=== PATIENT | male | born 1990 | race American Indian/Alaskan Native ===

== ENCOUNTER 2017-02-11 07:55 | Emergency (ER) | payer SELFPAY ==
[2017-02-11 08:39] VITALS: BP 123/78
[2017-02-11] MEDS ORDERED: MOTRIN PO ONE (10:14)
[2017-02-11] MEDS ORDERED: ZOFRAN ODT PO ONE (10:15)
--- NOTE | 2017-02-11 10:24 | Emergency Department Report ---
Entered by PRISCILLA LANGSTON, acting as scribe for LO BEAUCHAMP PA. ED ENT HPI - General Chief complaint: Pain General Stated complaint: TOOTHACHE Time Seen by Provider: 02/11/17 09:58 Source: patient Mode of arrival: Ambulatory Limitations: No Limitations - History of Present Illness Initial comments: 26 y/o male presents to the ED c/o top and bottom right side tooth pain. Associated symptoms include gum swelling to right cheek but he denies fever and chills. No alleviating factors despite taking goody's power and no aggravating factors. Allergic to tylenol. complaint: tooth pain Onset/Timin -: Gradual, days(s) Location: tooth # Severity: severe Severity scale (0 -10): 10 Quality: aching Consistency: constant Improves with: none Worsens with: none Context- Dental: poor dental care Associated Symptoms: other (gum swelling) - Related Data Previous Rx's Medication Instructions Recorded Last Taken Type Amoxicillin 500 mg PO TID #30 capsule 02/11/17 Unknown Rx Benzocaine [Orajel Liquid 20%] 1 ml MM Q6HR PRN #1 bottle 02/11/17 Unknown Rx Chlorhexidine Mouthwash [Peridex] 118 ml MM BID #1 bottle 02/11/17 Unknown Rx Codeine (Nf) 30 mg PO Q8H PRN #12 tablet 02/11/17 Unknown Rx Ibuprofen [Motrin] 600 mg PO Q8H PRN #30 tablet 02/11/17 Unknown Rx Allergies Allergy/AdvReac Type Severity Reaction Status Date / Time acetaminophen [From Tylenol] AdvReac Vomiting Verified 02/11/17 08:34 ED Dental HPI - General Chief complaint: Pain General Stated complaint: TOOTHACHE Time Seen by Provider: 02/11/17 09:58 Source: patient Mode of arrival: Ambulatory Limitations: No Limitations - History of Present Illness complaint: tooth pain Onset/Timin -: Sudden, days(s) Severity: severe Quality: aching Consistency: constant Improves with: none Worsens with: none Context- Dental: poor dental care Dental Associated Symptons: Yes: Gum Swelling - Related Data Previous Rx's Medication Instructions Recorded Last Taken Type Amoxicillin 500 mg PO TID #30 capsule 02/11/17 Unknown Rx Benzocaine [Orajel Liquid 20%] 1 ml MM Q6HR PRN #1 bottle 02/11/17 Unknown Rx Chlorhexidine Mouthwash [Peridex] 118 ml MM BID #1 bottle 02/11/17 Unknown Rx Codeine (Nf) 30 mg PO Q8H PRN #12 tablet 02/11/17 Unknown Rx Ibuprofen [Motrin] 600 mg PO Q8H PRN #30 tablet 02/11/17 Unknown Rx Allergies Allergy/AdvReac Type Severity Reaction Status Date / Time acetaminophen [From Tylenol] AdvReac Vomiting Verified 02/11/17 08:34 ED Review of Systems Comment: All other systems reviewed and negative Constitutional: denies: chills, fever ENT: dental pain, other (gum swelling) ED Past Medical Hx - Past Medical History Previous Medical History?: No - Surgical History Past Surgical History?: No - Social History Smoking Status: Current Some Day Smoker Substance Use Type: None - Medications Home Medications: Home Medications Medication Instructions Recorded Confirmed Last Taken Type Amoxicillin 500 mg PO TID #30 capsule 02/11/17 Unknown Rx Benzocaine [Orajel Liquid 20%] 1 ml MM Q6HR PRN #1 bottle 02/11/17 Unknown Rx Chlorhexidine Mouthwash [Peridex] 118 ml MM BID #1 bottle 02/11/17 Unknown Rx Codeine (Nf) 30 mg PO Q8H PRN #12 tablet 02/11/17 Unknown Rx Ibuprofen [Motrin] 600 mg PO Q8H PRN #30 tablet 02/11/17 Unknown Rx ED Physical Exam - General Limitations: No Limitations General appearance: alert, in no apparent distress - Head Head exam: Present: atraumatic, normocephalic, normal inspection - Eye Eye exam: Present: normal appearance, PERRL, EOMI Pupils: Present: normal accommodation - ENT ENT exam: Present: mucous membranes moist, TM's normal bilaterally, normal external ear exam - Expanded ENT Exam Expanded Teeth exam: Present: dental caries, other (no [employer], uvula midline, no induration of floor of mouth or induration of tongue to suggest Brennon's angina on clinical exam no visible dental abscess or facial abscess on exam) 1 - Dental Tenderness (multiple dental cavities) 2 - Dental Tenderness (multiple dental cavities) - Neck Neck exam: Present: normal inspection, full ROM. Absent: tenderness - Respiratory Respiratory exam: Present: normal lung sounds bilaterally. Absent: wheezes, rales, rhonchi - Cardiovascular Cardiovascular Exam: Present: regular rate, normal rhythm, normal heart sounds. Absent: systolic murmur, diastolic murmur, rubs, gallop - GI/Abdominal GI/Abdominal exam: Present: soft, normal bowel sounds. Absent: tenderness, guarding, rebound, rigid, mass, hernia - Rectal Rectal exam: Present: deferred - Extremities Exam Extremities exam: Present: normal inspection, full ROM, normal capillary refill. Absent: tenderness, pedal edema, joint swelling, calf tenderness - Back Exam Back exam: Present: normal inspection, full ROM. Absent: tenderness, CVA tenderness (R), CVA tenderness (L) - Neurological Exam Neurological exam: Present: alert, oriented X3 - Psychiatric Psychiatric exam: Present: normal affect, normal mood - Skin Skin exam: Present: warm, dry, intact, normal color. Absent: rash ED Course Vital Signs 02/11/17 08:35 Temperature 99.0 F Pulse Rate 54 L Respiratory 20 Rate Blood Pressure 123/78 O2 Sat by Pulse 100 Oximetry ED Medical Decision Making - Medical Decision Making A/P: dental cavities, toothache, dental abscess 1- Motrin when necessary, amoxicillin ten-day course, Orajel when necessary, Peridex mouthwash daily basis, short course codeine when necessary, short course Zofran when necessary 2- I provided patient with information for multiple dental clinics to follow up and stressed the importance of dental follow-up as he has multiple cavities that require dental fixation or instrumentation 3- no clinical signs of facial abscess, no Brennon's angina, no induration or cellulitis of floor of mouth or tongue 4- patient able to tolerate by mouth before discharge 5- no signs of facial infection. Advised patient that if he does not take antibiotics with follow-up with a dentist as soon as possible that a can result in potentially serious or dangerous infection to develop in jaw or face. Patient states that he understood these instructions. I advised patient to return to the ED for any persistent unrelenting nausea or vomiting fever or chills or headaches. ED Disposition Clinical Impression: Dental cavities, Toothache Disposition: TO HOME OR SELFCARE Is pt being admited?: No Does the pt Need Aspirin: No Condition: Stable Instructions: Dental Caries (ED), Toothache (ED) Additional Instructions: [email or web address]+[email or web address] Prescriptions: Amoxicillin 500 mg PO TID #30 capsule Benzocaine [Orajel Liquid 20%] 1 ml MM Q6HR PRN #1 bottle PRN Reason: Toothache Chlorhexidine Mouthwash [Peridex] 118 ml MM BID #1 bottle Codeine (Nf) 30 mg PO Q8H PRN #12 tablet PRN Reason: Toothache Ibuprofen [Motrin] 600 mg PO Q8H PRN #30 tablet PRN Reason: Pain Referrals: [facility] [Outside] - 3-5 Days Forms: Accompanied Note, Work/School Release Form(ED) Time of Disposition: 10:22 This documentation as recorded by the KIAN aponte ELIZABETH,accurately reflects the service I personally performed and the decisions made by NITO cedillo RICHARD J, PA.
== END 2017-02-11 10:37 | disposition home or self-care (01) ==
LOC: ED 07:55
DX: K02.9 Dental caries, unspecified (principal); F17.200 Nicotine dependence, unspecified, uncomplicated; Z88.8 Allergy status to other drugs, medicaments and biological substances
CPT/HCPCS: 99282; Q0162